=== PATIENT | female | born 1985 | race African-American/Black ===

== ENCOUNTER 2017-06-19 08:23 | Emergency (ER) | payer BC ==
[2017-06-19] MEDS ORDERED: 0.9 % SODIUM CHLORIDE 10 ML DISP.SYRIN. IV ×2 (08:45)
[2017-06-19 08:51] LABS: URINE HCG POC HCG NEGATIVE (Negative)
[2017-06-19 08:57] LABS: ADD MAN DIFF? NO
[2017-06-19] MEDS: PROCHLORPERAZINE 10 MG/2 ML VIAL. IV ×2 (08:59)
[2017-06-19] MEDS: KETOROLAC 30 MG/ML INJ. IV ×2 (08:59)
[2017-06-19] MEDS: IV NORMAL SALINE 1000ML BAG 1,000 ML IV ×2 (08:59)
[2017-06-19 09:07] LABS: ANION GAP 11 (6-14); BLOOD UREA NITROGEN 13 mg/dL (7-20); CARBON DIOXIDE 24 mmol/L (21-32); CHLORIDE 105 mmol/L (98-107); CREATININE 0.7 mg/dL (0.6-1.0); GFR 116.6; GLUCOSE 95 mg/dL (70-99); SODIUM 140 mmol/L (136-145)
[2017-06-19 09:09] LABS: BASO # 0.1 x10^3/uL (0.0-0.2); BASO % 1 % (0-3); EOS # 0.1 x10^3/uL (0.0-0.7); EOS % 1 % (0-3); HEMATOCRIT 40.3 % (36.0-47.0); HEMOGLOBIN 13.3 g/dL (12.0-15.5); LYMPH # 2.1 x10^3/uL (1.0-4.8); LYMPH % 23 % (24-48); MEAN CORPUSCULAR HEMOGLOBIN 31 pg (25-35); MEAN CORPUSCULAR HGB CONC 33 g/dL (31-37); MEAN CORPUSCULAR VOLUME 92 fL (79-100); MONO # 0.4 x10^3/uL (0.0-1.1); MONO % 5 % (0-9); NEUT # 6.3 x10^3uL (1.8-7.7); NEUT % 70 % (31-73); PLATELET COUNT 330 x10^3/uL (140-400); RED BLOOD COUNT 4.38 x10^6/uL (3.50-5.40); RED CELL DISTRIBUTION WIDTH 14.4 % (11.5-14.5)
[2017-06-19 09:13] LABS: ALBUMIN 3.3 g/dL (3.4-5.0); ALK PHOS 52 U/L (46-116); ALT (SGPT) 15 U/L (14-59); AST (SGOT) 23 U/L (15-37); BILIRUBIN,URINE NEGATIVE (NEG); CLARITY,URINE CLOUDY; COLOR,URINE YELLOW; DIRECT BILIRUBIN < 0.1 mg/dL (0.0-0.2); GLUCOSE,URINE NEGATIVE (NEG); LIPASE 131 U/L (73-393); NITRITE,URINE NEGATIVE (NEG); PH,URINE 7.5; PROTEIN,URINE NEGATIVE (NEG-TRACE); TOTAL BILIRUBIN 0.3 mg/dL (0.2-1.0); TOTAL PROTEIN 7.4 g/dL (6.4-8.2)
[2017-06-19 09:17] LABS: POTASSIUM 4.3 mmol/L (3.5-5.1)
[2017-06-19 09:21] LABS: AMORPHOUS SEDIMENT,UR PRESENT /HPF; AMPHETAMINE/METHAMPHETAMINE NEG (NEG); BARBITURATES NEG (NEG); BENZODIAZEPINES NEG (NEG); CANNABINOIDS NEG (NEG); COCAINE NEG (NEG); ETHANOL, URINE NEG (NEG); METHADONE NEG (NEG); OPIATES NEG (NEG); PHENCYCLIDINE NEG (NEG); SQUAMOUS EPITHELIAL CELL,UR MANY /LPF
[2017-06-19 09:22] LABS: BACTERIA,URINE MODERATE /HPF (0-FEW)
== END 2017-06-19 10:45 | disposition home or self-care (01) ==
LOC: ER 08:23
DX: R10.84 Generalized abdominal pain (principal); R11.2 Nausea with vomiting, unspecified; R19.7 Diarrhea, unspecified; R10.11 Right upper quadrant pain; R50.9 Fever, unspecified; F17.210 Nicotine dependence, cigarettes, uncomplicated; Z91.041 Radiographic dye allergy status
CPT/HCPCS: 36415; 74176; 80048; 80076; 80307; 81001; 81025; 83690; 85025; 87086; 96361; 96374; 96375; 99285-25; J0780; J1885; J7030